=== PATIENT | female | born 1965 | race Caucasian/White ===

== ENCOUNTER 2017-02-10 12:08 | Day surgery (SDC) | payer OTHER ==
[2017-02-10] MEDS ORDERED: LIDOCAINE HCL/PF 2% SDV 5ML VIAL ONE (13:14)
[2017-02-10] MEDS ORDERED: PROPOFOL 20 ML ONE (13:14)
[2017-02-10] MEDS ORDERED: MIDAZOLAM HCL 2 MG/2 ML SINGLE DOSE VIAL ONE (13:14)
[2017-02-10] MEDS ORDERED: ceFAZolin SODIUM 1 GM VIAL IVPB ONE (13:37)
[2017-02-10] MEDS ORDERED: ONDANSETRON 4 MG/2 ML VIAL IVPUSH PRN (14:20)
--- NOTE | 2017-02-10 14:27 | OP ---
Operative Note - Note: Operative Date: 02/10/17 Pre-Operative Diagnosis: Right Renal colic, rt. hydronephrosis Rt. Ureteral calculus Operation: Cysto, rt. retro ureteroscopy and stent placement Findings: The calculus seemed to have migrated to right renal lower pole Implants: 22 mm 6f stent Post-Operative Diagnosis: Same as Pre-op Surgeon: Marco Antonio Johnson Anesthesia: General Operative Report Dictated: Yes
[2017-02-10] MEDS ORDERED: LACTATED RINGERS SOLUTION 1,000 ML IV SCH (14:30)
[2017-02-10] MEDS: HYDROmorphone HCL CARPU-JECT 2 MG/1 ML DISP.SYRIN ONE ×4 (16:20→16:50)
[2017-02-10] MEDS ORDERED: ACETAMINOPHEN 1000 MG/100 ML VIAL (NON FORMULARY) IVPB ONE (16:30)
[2017-02-10] MEDS ORDERED: ACETAMINOPHEN INJECTION 100 ML IVPB ONE (16:32)
[2017-02-10] MEDS: oxyCODONE HCL 5 MG TABLET PO PRN ×2 (20:30→23:30)
[2017-02-10] MEDS ORDERED: ZOLPIDEM TARTRATE 5 MG TABLET PO PRN (23:24)
[2017-02-11] MEDS: oxyCODONE HCL 5 MG TABLET PO PRN ×3 (04:09→13:43)
[2017-02-11] MEDS: metFORMIN HCL 500 MG TABLET (FP) PO SCH ×2 (06:46→16:24)
[2017-02-11 08:19] VITALS: TEMP 97.8
[2017-02-11] MEDS ORDERED: TAMSULOSIN HCL 0.4 MG CAP.ER.24H (FP) PO SCH (08:30)
[2017-02-11] MEDS ORDERED: amLODIPine BESYLATE 10 MG TABLET (FP) PO SCH (10:00)
--- NOTE | 2017-02-11 12:09 | OP ---
DATE OF OPERATION: 02/10/2017 SURGEON: Marco Antonio Johnson MD ANESTHESIA: General. PREOPERATIVE DIAGNOSES: Right renal colic, right ureteral calculus, and right hydronephrosis. POSTOPERATIVE DIAGNOSES: Right renal colic, right ureteral calculus, and right hydronephrosis. PROCEDURE: Cystoscopy, retrograded ureteroscopy, and stent placement. FINDINGS: Bladder normal. Urethra normal. Right ureteral orifice was normally located. Retrograde showed severe hydronephrosis. The stone that was present in the original x-ray in the midway, upper right ureter seemed to have migrated into lower pole of the right kidney. Ureter was still very dilated. DESCRIPTION OF PROCEDURE: Patient, in lithotomy position, under anesthesia, was prepped and draped in the usual manner. Using 22 scope, cystoscopy performed, and findings were as noted above. Then, retrograde performed, and a guidewire was placed in the right collecting system. A second guidewire was placed, and ureteroscopy was performed. The stone that was present in the mid-ureter was not seen anymore. Retrograde showed the stone has migrated to the lower pole of the right collecting system. Then, a flexible scope was used, and the right kidney was inspected. The stone was present in the lower pole, but due to technical difficulties, stone could not be reached with the scope that was available. So, at that point, a stent was placed, confirmed with x-ray and cystoscope, and patient will be scheduled for an ESWL. Kat [id number]
[2017-02-11 14:16] VITALS: BP 122/65; PULSE 81
== END 2017-02-11 17:02 | disposition home or self-care (01) ==
LOC: JASU-SURG 12:08 → J6S 17:52 → JASU-SURG 02-11 17:02
PROVIDERS: ATTEND Urology
PROC: 0T768DZ Dilation of Right Ureter with Intraluminal Device, Via Natural or Artificial Opening Endoscopic (ICD-10-PCS; principal; 2017-02-10 13:00)
DX: N20.1 Calculus of ureter (principal); N23 Unspecified renal colic; N13.30 Unspecified hydronephrosis
CPT/HCPCS: 76000-TC; 94760

== ENCOUNTER 2017-04-13 12:33 | Day surgery (SDC) | payer OTHER ==
[2017-04-13 12:46] VITALS: BMI 30.9
[2017-04-13 12:50] VITALS: TEMP 98.5
[2017-04-13] MEDS ORDERED: LIDOCAINE HCL 1%, 10 MG/ML (20ML VIAL) INF ONE (15:21)
[2017-04-13] MEDS ORDERED: BETAMET ACET/BETAMET NA PH 30 MG/5 ML VIAL IJ ONE (15:22)
[2017-04-13] MEDS ORDERED: BUPIVACAINE HCL/PF 0.25% (2.5MG/ML) 10 ML VIAL IJ ONE (15:22)
[2017-04-13] MEDS ORDERED: IOHEXOL 180 MG/1 ML ML IJ ONE (15:23)
[2017-04-13 17:27] VITALS: BP 133/71; PULSE 58
== END 2017-04-13 17:05 | disposition home or self-care (01) ==
LOC: JASU-SURG 12:33
PROVIDERS: ATTEND Physical Medicine & Rehabilitation
PROC: 3E0R33Z Introduction of Anti-inflammatory into Spinal Canal, Percutaneous Approach (ICD-10-PCS; 2017-04-13)
PROC: B01BYZZ Fluoroscopy of Spinal Cord using Other Contrast (ICD-10-PCS; 2017-04-13)
PROC: 3E0R3CZ (ICD-10-PCS; principal; 2017-04-13 14:00)
DX: M54.16 Radiculopathy, lumbar region (principal); M54.5 Low back pain
CPT/HCPCS: 76000-TC

== ENCOUNTER 2020-06-24 19:58 | Emergency (ER) | payer OTHER ==
[2020-06-24 20:05] VITALS: BMI 29.8
[2020-06-24] MEDS ORDERED: ACETAMINOPHEN 500 MG TABLET (FP) PO ONE (20:15)
[2020-06-24] MEDS ORDERED: ACETAMINOPHEN 500 MG TABLET (FP) ONE (20:17)
[2020-06-24] MEDS ORDERED: KETOROLAC TROMETHAMINE 30 MG/1 ML VIAL ONE (21:11)
[2020-06-24] MEDS ORDERED: KETOROLAC TROMETHAMINE 60 MG/2 ML VIAL IM ONE (21:13)
[2020-06-24 22:19] VITALS: BP 116/66; PULSE 92; TEMP 99
== END 2020-06-24 22:21 | disposition home or self-care (01) ==
LOC: JER 19:58
PROC: 3E0233Z Introduction of Anti-inflammatory into Muscle, Percutaneous Approach (ICD-10-PCS; principal; 2020-06-24)
DX: U07.1 COVID-19 (principal)
CPT/HCPCS: 71045-TC-FY; 87804; 99284-25; C9803; U0003

== ENCOUNTER 2021-01-02 05:24 | Day surgery (SDC) | payer OTHER ==
[2021-01-01 14:08] VITALS: BMI 27.4
[2021-01-02] MEDS ORDERED: BETAMET ACET/BETAMET NA PH 30 MG/5 ML VIAL ONE (08:43)
[2021-01-02] MEDS ORDERED: LIDOCAINE HCL/PF 1% SDV 5ML VIAL ONE (08:43)
[2021-01-02] MEDS ORDERED: BUPIVACAINE HCL/PF 0.25% (2.5MG/ML) 10 ML VIAL ONE (08:43)
[2021-01-02] MEDS ORDERED: INSULIN (NOVOLOG) ASPART 100 UNITS/ML 10ML VIAL SQ ONE (11:00)
[2021-01-02] MEDS ORDERED: oxyCODONE HCL 5 MG TABLET PO PRN ×2 (11:47)
[2021-01-02] MEDS ORDERED: ACETAMINOPHEN 325 MG TABLET (FP) PO PRN (11:47)
[2021-01-02] MEDS ORDERED: ONDANSETRON 4 MG/2 ML VIAL IVPUSH PRN (11:47)
[2021-01-02] MEDS ORDERED: LACTATED RINGERS SOLUTION 1,000 ML IV SCH (12:00)
[2021-01-02] MEDS ORDERED: IOHEXOL 180 MG/1 ML ML IJ ONE (12:21)
[2021-01-02] MEDS ORDERED: BUPIVACAINE HCL/PF 0.25% (2.5MG/ML) 10 ML VIAL IJ ONE (12:22)
[2021-01-02] MEDS ORDERED: BETAMET ACET/BETAMET NA PH 30 MG/5 ML VIAL IM ONE (12:22)
[2021-01-02] MEDS ORDERED: PROPOFOL 20 ML ONE (12:29)
[2021-01-02 14:48] VITALS: BP 146/69; PULSE 54; TEMP 97.2
== END 2021-01-02 14:30 | disposition home or self-care (01) ==
LOC: JASU-SURG 05:24
PROVIDERS: ATTEND Physical Medicine & Rehabilitation
PROC: 3E0R33Z Introduction of Anti-inflammatory into Spinal Canal, Percutaneous Approach (ICD-10-PCS; 2021-01-02)
PROC: 3E0R3BZ Introduction of Anesthetic Agent into Spinal Canal, Percutaneous Approach (ICD-10-PCS; principal; 2021-01-02 12:20)
DX: M54.16 Radiculopathy, lumbar region (principal); M54.5 Low back pain; E11.9 Type 2 diabetes mellitus without complications; I10 Essential (primary) hypertension
CPT/HCPCS: 76000-TC-FY; 82962

== ENCOUNTER 2022-01-15 14:42 | Emergency (ER) | payer OTHER ==
[2022-01-15 16:14] VITALS: BP 150/86; PULSE 95; TEMP 98.3; BMI 27.4
[2022-01-15 21:07] LABS: EPI CELLS 21 /uL (0-25.1); HYALINE CASTS 1 /uL (0-3.1); URINE APPEARANCE CLEAR; URINE BACTERIA 345 /uL (0-1359); URINE BILIRUBIN NEGATIVE (NEGATIVE); URINE COLOR YELLOW; URINE GLUCOSE (UA) 3+ (NEGATIVE); URINE KETONE NEGATIVE (NEGATIVE); URINE LEUK ESTERASE TRACE (NEGATIVE); URINE NITRITE NEGATIVE (NEGATIVE); URINE PROTEIN NEGATIVE (NEGATIVE); URINE RBC 8 /uL (0-23.9); URINE UROBILINOGEN 0.2 mg/dL (0.2-1.0); URINE WBC 123 /uL (0-25.8)
== END 2022-01-15 18:28 | disposition home or self-care (01) ==
LOC: JERFT 14:42
DX: N76.5 Ulceration of vagina (principal)
CPT/HCPCS: 36415; 81003; 87086; 87491; 87591; 99283-25

== ENCOUNTER 2022-01-15 20:53 | Emergency (ER) | payer OTHER ==
[2022-01-15 21:11] VITALS: BP 149/85; PULSE 86; TEMP 97.6
[2022-01-15] MEDS ORDERED: LIDOCAINE PATCH REMOVAL MC SCH (22:00)
[2022-01-15] MEDS ORDERED: CYCLOBENZAPRINE HCL 10 MG TABLET (FP) PO ONE (23:06)
[2022-01-15] MEDS ORDERED: LIDOCAINE 5% TOPICAL PATCH TP ONE (23:06)
[2022-01-15] MEDS ORDERED: KETOROLAC TROMETHAMINE 30 MG/1 ML VIAL IM ONE (23:06)
[2022-01-15] MEDS ORDERED: LIDOCAINE 5% TOPICAL PATCH ONE (23:10)
[2022-01-15] MEDS ORDERED: CYCLOBENZAPRINE HCL 10 MG TABLET (FP) ONE (23:10)
[2022-01-15] MEDS ORDERED: KETOROLAC TROMETHAMINE 30 MG/1 ML VIAL ONE (23:10)
== END 2022-01-16 00:05 | disposition home or self-care (01) ==
LOC: JER 20:53 → JERFT 20:53 → JER 01-16 00:05
PROC: 3E0233Z Introduction of Anti-inflammatory into Muscle, Percutaneous Approach (ICD-10-PCS; principal; 2022-01-15)
DX: M54.50 Low back pain, unspecified (principal); M54.2 Cervicalgia; V89.2XXA Person injured in unspecified motor-vehicle accident, traffic, initial encounter
CPT/HCPCS: 72125-TC; 99284-25

== ENCOUNTER 2022-07-08 16:31 | Emergency (ER) | payer OTHER ==
[2022-07-08 16:36] VITALS: BP 132/75; PULSE 90; RESP 19; TEMP 98.6; BMI 25.7
[2022-07-08] MEDS ORDERED: diphenhydrAMINE HCL 50 MG CAPSULE PO ONE (16:58)
[2022-07-08] MEDS ORDERED: DEXAMETHASONE SOD PHOSPHATE 10 MG/1 ML VIAL IM ONE (16:58)
[2022-07-08] MEDS ORDERED: diphenhydrAMINE HCL 25 MG CAPSULE (FP) PO ONE (17:02)
[2022-07-08] MEDS ORDERED: DEXAMETHASONE SOD PHOSPHATE 10 MG/1 ML VIAL ONE (17:02)
== END 2022-07-08 18:38 | disposition home or self-care (01) ==
LOC: JER 16:31 → JERFT 16:31
PROC: 3E023GC Introduction of Other Therapeutic Substance into Muscle, Percutaneous Approach (ICD-10-PCS; principal; 2022-07-08)
DX: T78.40XA Allergy, unspecified, initial encounter (principal); L03.213 Periorbital cellulitis
CPT/HCPCS: 96372; 99284-25; J1100

== ENCOUNTER 2023-01-01 13:48 | Emergency (ER) | payer OTHER ==
[2023-01-01 14:11] VITALS: BP 159/74; PULSE 77; RESP 17; TEMP 97.9; BMI 26.9
[2023-01-01] MEDS ORDERED: IBUPROFEN 400 MG TABLET (FP) PO ONE ×2 (14:34→14:37)
== END 2023-01-01 15:43 | disposition home or self-care (01) ==
LOC: JERFT 13:48
DX: M25.571 Pain in right ankle and joints of right foot (principal); S92.511A Displaced fracture of proximal phalanx of right lesser toe(s), initial encounter for closed fracture; W22.8XXA Striking against or struck by other objects, initial encounter
CPT/HCPCS: 73630-TC-RT-FY; 99283-25

== ENCOUNTER 2023-07-01 17:45 | Emergency (ER) | payer OTHER ==
[2023-07-01 17:54] VITALS: BMI 24.7
[2023-07-01] MEDS ORDERED: ACETAMINOPHEN 1000 MG/100 ML BAG IVPB ONE (19:30)
[2023-07-01] MEDS ORDERED: SODIUM CHLORIDE 0.9% 1000 ML INFUS.BAG IV ONE (19:42)
[2023-07-01 20:16] LABS: BASO % 0.5 % (0-2.0); HEMOGLOBIN 11.9 GM/dL (10.7-15.3); LYMPH % 21.1 % (8-40); MCH 28.6 pg (25.7-33.7); MCHC 32.3 g/dl (32.0-36.0); MEAN CELL VOLUME 88.7 fl (80-96); MEAN PLT VOLUME 8.2 fl (7.5-11.1); MONO % 5.1 % (3.8-10.2); NEUT % 72.3 % (42.8-82.8); PLATELET COUNT 255 10^3/uL (134-434); RBC 4.17 M/mm3 (3.60-5.2); RDW 12.6 % (11.6-15.6); WHITE BLOOD COUNT 6.9 K/mm3 (4.0-10.0)
[2023-07-01] MEDS ORDERED: ACETAMINOPHEN INJECTION 100 ML IVPB ONE (20:21)
[2023-07-01 20:29] LABS: INR 0.91 (0.83-1.09); PROTHROMBIN TIME (PATIENT) 10.6 SEC (9.7-13.0)
[2023-07-01] MEDS ORDERED: VANCOMYCIN 1,000 MG in DEXTROSE 5%-WATER - 250 ML IVPB ONE (20:29)
[2023-07-01] MEDS ORDERED: PIPERACILLIN/TAZOB 3.375 GM 3.375 GM in DEXTROSE 5%-WATER - 50 ML IVPB ONE (20:29)
[2023-07-01 20:31] LABS: ACTIVATED PTT 24.4 SECONDS (25.2-36.5)
[2023-07-01 20:35] LABS: POTASSIUM 4.9 mmol/L (3.5-5.1)
[2023-07-01 20:38] LABS: CALCIUM 8.8 mg/dL (8.5-10.1)
[2023-07-01 20:39] LABS: ALBUMIN 2.9 g/dl (3.4-5.0)
[2023-07-01 20:42] LABS: CREATININE 1.1 mg/dL (0.55-1.3)
[2023-07-01 20:44] LABS: BILIRUBIN,TOTAL 0.3 mg/dL (0.2-1); TOT PROT 6.8 g/dl (6.4-8.2)
[2023-07-01] MEDS ORDERED: morphine SULFATE 4 MG/ML VIAL IVPUSH ONE (20:45)
[2023-07-01 22:34] VITALS: PULSE 81
[2023-07-02] MEDS ORDERED: PIPERACILLIN/TAZOB 3.375 GM 3.375 GM/50 ML BAG IVPB ONE (00:44)
[2023-07-02] MEDS ORDERED: morphine SULFATE 4 MG/ML VIAL ONE (00:44)
[2023-07-02 00:47] VITALS: BP 114/62; RESP 18; TEMP 98.2
== END 2023-07-02 01:13 | disposition short-term general hospital (02) ==
LOC: JER 17:45
PROC: 3E03329 Introduction of Other Anti-infective into Peripheral Vein, Percutaneous Approach (ICD-10-PCS; principal; 2023-07-01)
PROC: 3E033NZ Introduction of Analgesics, Hypnotics, Sedatives into Peripheral Vein, Percutaneous Approach (ICD-10-PCS; 2023-07-01)
PROC: 3E033GC Introduction of Other Therapeutic Substance into Peripheral Vein, Percutaneous Approach (ICD-10-PCS; 2023-07-01)
DX: R42 Dizziness and giddiness (principal); T85.49XA Other mechanical complication of breast prosthesis and implant, initial encounter; T81.49XA Infection following a procedure, other surgical site, initial encounter; Z20.822 Contact with and (suspected) exposure to COVID-19
CPT/HCPCS: 0241U-QW; 36415; 71046-TC-FY; 71260-TC; 80053; 85025; 85610; 85730; 86850; 86900; 86901; 87040; 87070; 87186; 87205; 93005; 93010; 96365; 96375; 99285-25; Q9967

== ENCOUNTER 2024-08-07 18:08 | Emergency (ER) | payer OTHER ==
[2024-08-07 18:46] VITALS: BP 135/82; PULSE 89; RESP 16; TEMP 98; BMI 24.7
[2024-08-07 20:23] LABS: THROAT:GRP A STREP NOT DETECTED (NOTDETECTED)
[2024-08-07] MEDS ORDERED: ACETAMINOPHEN 500 MG TABLET (FP) ONE (20:59)
[2024-08-07] MEDS ORDERED: KETOROLAC TROMETHAMINE 15 MG/ML VIAL ONE (20:59)
[2024-08-07] MEDS: ACETAMINOPHEN 500 MG TABLET (FP) PO ONE (21:06)
[2024-08-07] MEDS: KETOROLAC TROMETHAMINE 15 MG/ML VIAL IVPUSH ONE (21:06)
== END 2024-08-07 22:53 | disposition home or self-care (01) ==
LOC: JER 18:08 → JERFT 18:08
PROC: 3E0333Z Introduction of Anti-inflammatory into Peripheral Vein, Percutaneous Approach (ICD-10-PCS; principal; 2024-08-07)
DX: M25.532 Pain in left wrist (principal); J06.9 Acute upper respiratory infection, unspecified; R50.9 Fever, unspecified; R51.9 Headache, unspecified; R05.9 Cough, unspecified; R10.9 Unspecified abdominal pain; R09.81 Nasal congestion; M25.432 Effusion, left wrist; Z20.822 Contact with and (suspected) exposure to COVID-19
CPT/HCPCS: 0241U-QW; 71046-TC-FY; 73110-TC-LT-FY; 87651; 96374; 99284-25